=== PATIENT | female | born 1970 | race Caucasian/White ===

== ENCOUNTER → 2017-10-20 | Outpatient (CLI) | payer BC, OTHER ==
[~2017-10-20] MED LIST: ACET-749 PO; PRENTAB26 PO
--- NOTE | 2017-10-20 15:03 | DIAGNOSTIC IMAGING REPORT ---
R SHOULDER MIN 2 VIEWS CLINICAL HISTORY: Right shoulder pain. COMPARISON: None FINDINGS: A few calcified densities measuring up to 1 cm node along the superolateral aspect of the right humeral head. These suggest calcific tendinitis of the right rotator cuff. There is no fracture or suspicious lesion. There is mild acromioclavicular joint osteoarthritis. IMPRESSION: 1. No acute fracture. 2. Findings suggestive of calcific tendinitis of the right rotator cuff. 3. Mild osteoarthritis of the right acromioclavicular joint. Electronically signed by: Noe Carlos M.D. 10/20/2017 3:02 PM Dictated Date/Time: 10/20/2017 3:00 PM
== END | disposition home or self-care (01) ==
LOC: C.RDSM 14:50
PROVIDERS: ATTEND Family Medicine
DX: M25.511 Pain in right shoulder (principal)